=== PATIENT | female | born 1995 | race Caucasian/White ===

== ENCOUNTER 2017-12-10 23:20 | Emergency (ER) | payer OTHER ==
[2017-12-10] MEDS ORDERED: Ibuprofen 600 MG TAB ONE (23:44)
--- NOTE | 2017-12-11 09:16 | RAD ---
RIGHT HAND 3 VIEWS: Date: 12/11/17 COMPARISON: None. HISTORY: Pain, punched a couch. FINDINGS: No displaced fracture or evidence of dislocation seen. No radiopaque foreign body or subcutaneous gas noted. IMPRESSION: No acute findings. POS: [facility]
== END 2017-12-11 00:08 | disposition home or self-care (01) ==
LOC: SCSER 23:20
DX: S60.221A Contusion of right hand, initial encounter (principal); Y04.0XXA Assault by unarmed brawl or fight, initial encounter

== ENCOUNTER 2018-11-17 14:10 | Emergency (ER) | payer OTHER ==
[2018-11-17] MEDS ORDERED: Morphine 4 MG/ML VIAL ONE ×3 (14:36→16:58)
[2018-11-17 14:37] LABS: Bilirubin Negative (Negative); Blood, Urine Negative (Negative); Clarity Cloudy (Clear); Glucose, Urine (Dipstick) Negative (Negative); Leukocyte Trace (Negative); Nitrite Negative (Negative); Protein, Urine (Dipstick) Trace mg/dL (Neg-Trace); Urobilinogen 0.2 mg/dL (Less than 2)
[2018-11-17] MEDS ORDERED: Ondansetron PF 4 MG/2 ML Vial ONE (14:37)
[2018-11-17] MEDS ORDERED: Ketorolac Tromethamine 30 MG/ML VIAL ONE (14:37)
[2018-11-17 14:38] LABS: Pregnancy Test - Urine (BHCG) Negative (Negative); Pregu Control Background? CLEAR/WHITE (CLR/WHITE); Pregu Control Bar Appear? YES (CONTROL BAR); Specific Gravity 1.025 (1.002-1.036)
[2018-11-17 14:39] LABS: RBC/HPF 0-3 HPF (0-3)
[2018-11-17 14:40] LABS: Bacteria/HPF 2+ HPF (None Seen); Mucous/LPF 2+ LPF (<2+)
[2018-11-17 14:54] LABS: #Basophils 0.1 thou/uL (0.0-0.2); #Eosinphils 0.2 thou/uL (0.0-0.7); #Lymphocytes 1.6 thou/uL (1.20-3.40); #Monocytes 0.7 thou/uL (0.11-0.59); #Neutrophils 2.7 thou/uL (1.40-6.50); %Basophils 1.3 % (0.0-1.0); %Monocytes 12.6 % (0.0-10.0); %Neutrophils 52.1 % (42.0-75.0); Hemoglobin 12.6 g/dL (12.0-16.0); Mean Corpuscular HGB CONC 33.8 g/dL (32.0-36.0); Mean Corpuscular Hemoglobin 27.2 pg (27.0-31.0); Mean Corpuscular Volume 80.5 fL (78.0-98.0); Mean Platelet Volume 6.4 fL (7.4-10.4); Platelet Count 235 thou/uL (130-400); RBC Distribution Width 13.6 % (11.5-14.5); Red Blood Cell (RBC) Count 4.63 mill/uL (4.20-5.40); White Blood Cell (WBC) Count 5.2 thou/uL (4.8-10.8)
[2018-11-17 15:04] LABS: ALT (SGPT) 15 U/L (8-55); AST (SGOT) 23 U/L (5-34); Albumin 4.3 g/dL (3.5-5.0); Alkaline Phosphatase 60 U/L (40-150); Anion Gap 13 mmol/L (10-20); BUN (Urea Nitrogen) 9 mg/dL (7.0-18.7); Bilirubin, Total 0.7 mg/dL (0.2-1.2); Calc. Creatinine Clearance 0 mL/min (70-130); Calcium 9.8 mg/dL (7.8-10.44); Carbon Dioxide 27 mmol/L (22-29); Chloride 105 mmol/L (98-107); Estimated GFR-MDRD Greater than 90; Globulin 3.1 g/dL (2.4-3.5); Glucose 84 mg/dL (70-105); Potassium 3.9 mmol/L (3.5-5.1); Protein, Total 7.4 g/dL (6.0-8.3); Sodium 141 mmol/L (136-145)
--- NOTE | 2018-11-17 17:00 | ULT ---
Exam: Transabdominal and endovaginal pelvic ultrasound. HISTORY: Pelvic pain. COMPARISON: None TECHNIQUE: Transabdominal and endovaginal imaging of the pelvis is performed. Ovaries are interrogate d with grayscale, color flow, Doppler imaging and spectral wave form analysis FINDINGS: Uterus is identified without myometrial masses. Uterus measures 7.6 x 3.2 x 5.2 cm. Endometrium is a homogeneous echotexture measuring 0.9 cm. Both ovaries have multiple follicles. Right ovary measures 1.9 x 1.6 x 1.5 cm Left ovary measures 3.1 x 2.2 x 3.1 cm Small amount of fluid in the cul-de-sac. Slightly limited evaluation of the right adnexa due to bowel gas. Ovarian Doppler: Vascular flow to both ovaries IMPRESSION: 1. Unremarkable ultrasound of the uterus. 2. Bilateral ovarian follicles. Vascular flow to both.
== END 2018-11-17 17:22 | disposition home or self-care (01) ==
LOC: SCSER 14:10
DX: N83.202 Unspecified ovarian cyst, left side (principal); F31.9 Bipolar disorder, unspecified; F41.9 Anxiety disorder, unspecified; F17.290 Nicotine dependence, other tobacco product, uncomplicated
CPT/HCPCS: 76856; 80053; 81003; 81015; 81025; 85025; 96374; 96375; 96376; J1885; J2270; J2405

== ENCOUNTER 2019-02-02 05:16 | Emergency (ER) | payer OTHER ==
[2019-02-02] MEDS ORDERED: Ondansetron ODT 8 MG TAB ONE (05:25)
[2019-02-02 06:31] LABS: #Basophils 0.1 thou/uL (0.0-0.2); #Lymphocytes 1.2 thou/uL (1.20-3.40); #Monocytes 0.5 thou/uL (0.11-0.59); #Neutrophils 4.1 thou/uL (1.40-6.50); %Eosinophils 0.6 % (0.0-10.0); %Neutrophils 70.4 % (42.0-75.0); Hemoglobin 12.4 g/dL (12.0-16.0); Mean Corpuscular HGB CONC 33.2 g/dL (32.0-36.0); Mean Corpuscular Hemoglobin 28.4 pg (27.0-31.0); Mean Corpuscular Volume 85.4 fL (78.0-98.0); Mean Platelet Volume 7.1 fL (7.4-10.4); Platelet Count 295 thou/uL (130-400); RBC Distribution Width 13.5 % (11.5-14.5); Red Blood Cell (RBC) Count 4.38 mill/uL (4.20-5.40); White Blood Cell (WBC) Count 5.8 thou/uL (4.8-10.8)
[2019-02-02 06:39] LABS: BHCG - Serum Negative (NEGATIVE); Pregs Control Background? CLEAR/WHITE (CLR/WHITE); Pregs Control Bar Appear? YES (CONTROL BAR)
[2019-02-02 06:54] LABS: ALT (SGPT) 13 U/L (8-55); AST (SGOT) 18 U/L (5-34); Acetaminophen Less than 6.0 mcg/mL (10.0-30.0); Albumin 4.5 g/dL (3.5-5.0); Alcohol 88 mg/dL (Less than 10); Alkaline Phosphatase 61 U/L (40-150); Anion Gap 13 mmol/L (10-20); BUN (Urea Nitrogen) 4 mg/dL (7.0-18.7); Bilirubin, Total 0.4 mg/dL (0.2-1.2); Calc. Creatinine Clearance 0 mL/min (70-130); Calcium 9.2 mg/dL (7.8-10.44); Carbon Dioxide 21 mmol/L (22-29); Chloride 108 mmol/L (98-107); Estimated GFR-MDRD Greater than 90; Glucose 99 mg/dL (70-105); Potassium 3.4 mmol/L (3.5-5.1); Protein, Total 7.5 g/dL (6.0-8.3); Salicylate Less than 8.0 mg/dL (15.0-30.0); Sodium 139 mmol/L (136-145)
[2019-02-02] MEDS ORDERED: Acetaminophen 500 MG TAB ONE (11:11)
[2019-02-02 11:52] LABS: Amphetamine Not Detected (NotDetected); Barbiturates Screen Not Detected (NotDetected); Benzodiazepine Screen Not Detected (NotDetected); Cocaine Metabolite Screen Not Detected (NotDetected); Medtox Control Line Valid? VALID (VALID); Medtox Reader # READER 4; Methadone Not Detected (NotDetected); Methamphetamine Not Detected (NotDetected); Opiate Screen Not Detected (NotDetected); Oxycodone Screen Not Detected (NotDetected); Phencyclidine (PCP) Not Detected (NotDetected); THC/Cannabinoid Screen Not Detected (NotDetected); Tricyclic Screen Not Detected (NotDetected)
== END 2019-02-02 13:53 | disposition home or self-care (01) ==
LOC: ERS 05:16
DX: T43.222A Poisoning by selective serotonin reuptake inhibitors, intentional self-harm, initial encounter (principal); F43.20 Adjustment disorder, unspecified; F41.9 Anxiety disorder, unspecified; F31.9 Bipolar disorder, unspecified; F17.210 Nicotine dependence, cigarettes, uncomplicated; Z79.899 Other long term (current) drug therapy
CPT/HCPCS: 36415; 80053; 80306; 80307; 83735; 84703; 85025; 93005

== ENCOUNTER 2019-02-18 17:19 | Emergency (ER) | payer OTHER ==
[2019-02-18] MEDS ORDERED: Oxymetazoline HCl 0.05% (30 ML BOT) NS SCH (18:15)
[2019-02-18] MEDS ORDERED: Silver Nitrate Application 1 EACH ONE (18:53)
== END 2019-02-18 19:33 | disposition home or self-care (01) ==
LOC: ERS 17:19
DX: R04.0 Epistaxis (principal); F41.9 Anxiety disorder, unspecified; F31.9 Bipolar disorder, unspecified; F17.210 Nicotine dependence, cigarettes, uncomplicated; Z79.899 Other long term (current) drug therapy
CPT/HCPCS: 30901

== ENCOUNTER 2019-03-24 17:50 | Emergency (ER) | payer OTHER ==
[2019-03-24 18:14] LABS: Bilirubin Negative (Negative); Blood, Urine Negative (Negative); Clarity Cloudy (Clear); Glucose, Urine (Dipstick) Negative (Negative); Leukocyte Negative (Negative); Nitrite Negative (Negative); Protein, Urine (Dipstick) Negative (Neg-Trace); Urobilinogen 0.2 mg/dL (Less than 2)
[2019-03-24 18:20] LABS: Pregnancy Test - Urine (BHCG) Negative (Negative)
[2019-03-24 18:21] LABS: Pregu Control Background? CLEAR/WHITE (CLR/WHITE); Pregu Control Bar Appear? YES (CONTROL BAR); Specific Gravity 1.015 (1.002-1.036)
[2019-03-24 18:30] LABS: #Basophils 0.1 thou/uL (0.0-0.2); #Eosinphils 0.1 thou/uL (0.0-0.7); #Lymphocytes 2.3 thou/uL (1.20-3.40); #Neutrophils 6.5 thou/uL (1.40-6.50); %Basophils 0.6 % (0.0-1.0); %Eosinophils 1.4 % (0.0-10.0); %Monocytes 9.6 % (0.0-10.0); %Neutrophils 65.5 % (42.0-75.0); Hemoglobin 11.4 g/dL (12.0-16.0); Mean Corpuscular HGB CONC 32.3 g/dL (32.0-36.0); Mean Corpuscular Hemoglobin 27.4 pg (27.0-31.0); Mean Corpuscular Volume 84.8 fL (78.0-98.0); Mean Platelet Volume 7.1 fL (7.4-10.4); Platelet Count 246 thou/uL (130-400); RBC Distribution Width 13.4 % (11.5-14.5); Red Blood Cell (RBC) Count 4.16 mill/uL (4.20-5.40)
[2019-03-24] MEDS ORDERED: Ketorolac Tromethamine 30 MG/ML VIAL ONE (18:30)
[2019-03-24 18:47] LABS: ALT (SGPT) 9 U/L (8-55); AST (SGOT) 14 U/L (5-34); Albumin 3.9 g/dL (3.5-5.0); Alkaline Phosphatase 58 U/L (40-110); Anion Gap 12 mmol/L (10-20); BUN (Urea Nitrogen) 7 mg/dL (7.0-18.7); Bilirubin, Total 0.5 mg/dL (0.2-1.2); Calc. Creatinine Clearance 0 mL/min (70-130); Calcium 8.7 mg/dL (7.8-10.44); Carbon Dioxide 24 mmol/L (22-29); Chloride 107 mmol/L (98-107); Estimated GFR-MDRD Greater than 90; Globulin 2.8 g/dL (2.4-3.5); Glucose 87 mg/dL (70-105); Lipase 19 U/L (8-78); Protein, Total 6.7 g/dL (6.0-8.3); Sodium 139 mmol/L (136-145)
--- NOTE | 2019-03-24 19:52 | ULT ---
ULTRASOUND TRANSVAGINAL DOPPLER DUPLEX: DATE: 03/24/2019 HISTORY: 23-year-old female with pelvic pain TECHNIQUE: Endovaginal transducer used to visualize intrapelvic contents with grayscale, color-flow, and spectra l analysis. FINDINGS: Moderate amount of free fluid within the pelvic cavity, both in the cul-de-sac and anterior to the ut erine fundus. Uterus: 8 x 4 x 4.5 cm. Right ovary: 4 x 3 x 2.5 cm. Left ovary: 2.5 x 1.5 x 3.5 cm. In the right ovarian parenchyma, there is a irregularly-shaped, heterogeneously hypoechoic 3 x 2 x 1. 5 cm lesion. Blood flow demonstrated in bilateral ovarian parenchyma by Doppler. Endometrial stripe: 0.9 cm (9 mm), with slightly heterogeneous echogenicity. Anterior myometrium of the uterine fundus and body has coarse, heterogeneous echotexture. This may or may not represent multiple small uterine fibroids IMPRESSION: 1) moderate volume of free fluid within the pelvic cavity. 2) 3 cm right ovarian lesion. Etiology is uncertain, but one possibility is hemorrhagic ovarian cyst. 3) recommend 6 week follow-up pelvic and transvaginal ultrasound.
[2019-03-27 00:40] LABS: Chlamydia by PCR DETECTED (NotDetected); GC by PCR Not Detected (NotDetected)
== END 2019-03-24 20:05 | disposition home or self-care (01) ==
LOC: SCSER 17:50
DX: N83.201 Unspecified ovarian cyst, right side (principal); F31.9 Bipolar disorder, unspecified; F41.9 Anxiety disorder, unspecified; F17.210 Nicotine dependence, cigarettes, uncomplicated; F17.290 Nicotine dependence, other tobacco product, uncomplicated
CPT/HCPCS: 76856; 80053; 81003; 81025; 83690; 85025; 87480; 87491; 87510; 87591; 87660; J1885; J2270

== ENCOUNTER 2019-05-24 17:54 | Emergency (ER) | payer OTHER ==
[2019-05-24 19:35] LABS: #Eosinphils 0.1 thou/uL (0.0-0.7); #Monocytes 0.8 thou/uL (0.11-0.59); #Neutrophils 4.1 thou/uL (1.40-6.50); %Basophils 0.4 % (0.0-1.0); %Eosinophils 1.9 % (0.0-10.0); %Monocytes 10.8 % (0.0-10.0); %Neutrophils 58.9 % (42.0-75.0); Hemoglobin 11.7 g/dL (12.0-16.0); Mean Corpuscular HGB CONC 34.1 g/dL (32.0-36.0); Mean Corpuscular Hemoglobin 28.4 pg (27.0-31.0); Mean Corpuscular Volume 83.3 fL (78.0-98.0); Mean Platelet Volume 7.6 fL (7.4-10.4); Platelet Count 216 thou/uL (130-400); RBC Distribution Width 14.5 % (11.5-14.5); Red Blood Cell (RBC) Count 4.11 mill/uL (4.20-5.40)
[2019-05-24] MEDS ORDERED: Acetaminophen 500 MG TAB ONE (19:46)
[2019-05-24 19:50] LABS: Bilirubin Negative (Negative); Blood, Urine Negative (Negative); Clarity Clear (Clear); Glucose, Urine (Dipstick) Normal (Negative); Leukocyte Negative Leu/uL (Negative); Nitrite Negative (Negative); Protein, Urine (Dipstick) Negative (Neg-Trace); Urobilinogen Normal mg/dL (Less than 2)
[2019-05-24 19:55] LABS: BHCG - Serum POSITIVE (NEGATIVE); Pregs Control Background? CLEAR/WHITE (CLR/WHITE); Pregs Control Bar Appear? YES (CONTROL BAR)
[2019-05-24 19:57] LABS: ALT (SGPT) 10 U/L (8-55); AST (SGOT) 15 U/L (5-34); Albumin 3.8 g/dL (3.5-5.0); Alkaline Phosphatase 55 U/L (40-110); Anion Gap 10 mmol/L (10-20); BUN (Urea Nitrogen) 7 mg/dL (7.0-18.7); Bilirubin, Total 0.3 mg/dL (0.2-1.2); Calc. Creatinine Clearance 0 mL/min (70-130); Calcium 8.6 mg/dL (7.8-10.44); Carbon Dioxide 22 mmol/L (22-29); Chloride 104 mmol/L (98-107); Estimated GFR-MDRD Greater than 90; Globulin 2.9 g/dL (2.4-3.5); Glucose 81 mg/dL (70-105); Lipase 18 U/L (8-78); Potassium 3.7 mmol/L (3.5-5.1); Protein, Total 6.7 g/dL (6.0-8.3); Sodium 132 mmol/L (136-145)
--- NOTE | 2019-05-24 21:05 | ULT ---
TRANSABDOMINAL TRANSVAGINAL PELVIC ULTRASOUND DATE:: 05/24/2019 8:43 PM CLINICAL HISTORY: History of cramping for 7 weeks. COMPARISON: Prior exam dated March 24, 2019 TECHNIQUE: Grayscale, color Doppler and spectral Doppler images were obtained of the pelvis see a tra nsabdominal transvaginal approach Uterus: Size: 10.8 x 5.2 x 6.9 cm. Mass: None Cervix: Within normal limits Endometrium: There is a intrauterine gestational sac containing a pole and yolk sac. Cardiac ac tivity associated with the pole at 135 bpm. [place]-rump length was 1 cm giving estimated gestational age of 7 weeks and 0 days. Estimated due date is January 10, 2020. Ovaries: Size: right measures 2.8 x 1.1 x 3.2 cm; left measures 3.6 x 2.6 x 2.7 cm Mass: Right ovarian lesion has intervally resolved. Left ovary is normal-appearing.. Flow: Normal Cul-de-sac: Minimal free fluid IMPRESSION: Single live intrauterine gestation with size and dates as above. Previously seen right ovarian lesion has intervally resolved. This likely reflected a hemorrhagic cyst.
== END 2019-05-24 22:27 | disposition home or self-care (01) ==
LOC: ERS 17:54
DX: O99.89 Other specified diseases and conditions complicating pregnancy, childbirth and the puerperium (principal); R10.31 Right lower quadrant pain; O99.011 Anemia complicating pregnancy, first trimester; O99.341 Other mental disorders complicating pregnancy, first trimester; F31.9 Bipolar disorder, unspecified; F41.9 Anxiety disorder, unspecified; O99.331 Smoking (tobacco) complicating pregnancy, first trimester; F17.210 Nicotine dependence, cigarettes, uncomplicated; Z3A.01 Less than 8 weeks gestation of pregnancy
CPT/HCPCS: 36415; 76856; 80053; 81003; 83690; 84702; 84703; 85025; 96360

== ENCOUNTER 2020-01-27 16:07 | Emergency (ER) | payer OTHER, MEDICAID ==
--- NOTE | 2020-01-27 16:56 | RAD ---
Exam: XR Hand Rt 3 View STANDARD HISTORY: Right hand pain after punching steering well. COMPARISON: 12/11/2017 FINDINGS: No acute fracture, dislocation, or other acute osseous abnormality is identified. No interval change from prior study. IMPRESSION: No acute osseous abnormality is identified.
== END 2020-01-27 17:36 | disposition home or self-care (01) ==
LOC: ERS 16:07
DX: S60.221A Contusion of right hand, initial encounter (principal); D64.9 Anemia, unspecified; F41.9 Anxiety disorder, unspecified; F32.9 Major depressive disorder, single episode, unspecified; F17.210 Nicotine dependence, cigarettes, uncomplicated; W22.8XXA Striking against or struck by other objects, initial encounter

== ENCOUNTER 2021-10-05 17:35 | Emergency (ER) | payer BC, OTHER | END 2021-10-05 19:41 | disposition home or self-care (01) | LOC: ERS 17:35 | DX: B34.9 Viral infection, unspecified (principal); D64.9 Anemia, unspecified; N83.209 Unspecified ovarian cyst, unspecified side; F17.210 Nicotine dependence, cigarettes, uncomplicated | CPT/HCPCS: 71045; 87804; 99284 ==

== ENCOUNTER 2022-05-12 12:01 | Outpatient (CLI) | payer BC | END 2022-05-12 12:02 | disposition home or self-care (01) | LOC: BICULT 12:01 | PROVIDERS: ATTEND Family Medicine | DX: N92.0 Excessive and frequent menstruation with regular cycle (principal) | CPT/HCPCS: 76856; 93976 ==

== ENCOUNTER 2025-01-10 08:44 | Emergency (ER) | payer MEDICAID, OTHER, SELFPAY ==
[2025-01-10] MEDS ORDERED: Oxymetazoline HCl 0.05% (30 ML BOT) ONE (08:57)
== END 2025-01-10 11:22 | disposition home or self-care (01) ==
LOC: ERS 08:44
DX: N63.0 Unspecified lump in unspecified breast (principal); R04.0 Epistaxis; D64.9 Anemia, unspecified; F17.290 Nicotine dependence, other tobacco product, uncomplicated